=== PATIENT | female | born 2005 | race African-American/Black ===

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

== ENCOUNTER 2025-01-12 13:30 | Emergency (ER) | payer OTHER ==
[2025-01-12 14:28] LABS: Absolute Lymphocytes (CBC) 2.3 K/uL (0.7-4.9); Hematocrit 37.9 % (36.0-45.0); Hemoglobin 12.3 g/dL (12.0-15.0); MCH 27.9 pg (27.0-35.0); MCHC 32.5 g/dL (32.0-36.0); MCV 85.9 fL (80-100); MPV 7.3 fL (7.6-11.3); Nucleated RBC Absolute Count 0.0 (0-0); Nucleated Red Blood Cells % 0.0 % (0-0); RBC Red Blood Cell Count 4.42 M/uL (3.86-4.86); White Blood Count 12.00 thou/uL (4.3-10.9)
--- NOTE | 2025-01-12 14:59 | RAD REPORT ---
EXAMINATION: US FIRST TRIMESTER TRANSVAGINAL WITH DOPPLER CLINICAL INDICATION: with vaginal bleeding TECHNIQUE: Real-time obstetrical ultrasonography of the maternal pelvis and first trimester was performed transvaginally. Color and spectral Doppler evaluation of the ovaries was performed. COMPARISON: No prior exam. FINDINGS: The uterus measures 9 x 5 x 6 cm. A gestational sac is present within the endometrium. Within this is a pole crown-rump length 1. 4 cm. Cardiac activity 167 bpm. 1.4 x 0.6 cm subchorionic bleed. Right ovary normal in size and echotexture. Blood flow to the right ovary. 1.9 cm cyst Left ovary normal in size and echotexture. Blood flow to the left ovary Right and left adnexa unremarkable No significant free fluid IMPRESSION: Single live intrauterine with an estimated gestational age 7 weeks 4 days ALBERTINA 08/27/2025 Small subchorionic bleed
[2025-01-12 15:16] LABS: Anion Gap 8.7 mEq/L (5.0-15.0); BUN Blood Urea Nitrogen 8.0 mg/dL (7-18); Glucose Level 81.0 mg/dL (74-106); HCG, Quantitative 43230.0 mIU/mL (1-3); Potassium 3.7 mEq/L (3.5-5.1)
[2025-01-12 16:00] LABS: Sqamous Epithelial <5 /HPF (None Seen); Urine Culture Reflex Order NOT NEEDED; Urine Microscopic Reflex YN ORDER UMIC
--- NOTE | 2025-01-12 17:36 | ER ---
Nurse's Notes [facility] Name: Juan Reyez Age: 19 yrs Sex: Female : 2005 Arrival Date: 01/12/2025 Time: 13:30 Bed 16 Private MD: Diagnosis: Other hemorrhage in early ;UTI/ Urinary tract infection, site not specified Presentation: 01/12 13:51 Chief complaint: Patient states: 8 weeks and had some vaginal bleeding 2 days me1 ago that has resolved yesterday afternoon. Slight abdominal cramps today. Coronavirus screen: Vaccine status: Patient reports being unvaccinated. Ebola Screen: No symptoms or risks identified at this time. Initial Sepsis Screen: Does the patient meet any 2 criteria? HR > 90 bpm. Does the patient have a suspected source of infection? No. Patient's initial sepsis screen is negative. Risk Assessment: Do you want to hurt yourself or someone else? Patient reports no desire to harm self or others. Onset of symptoms was January 10, 2025. 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 - Infectious Disease History:: Denies. - Social history:: Smoking status: Patient denies any tobacco usage or history of. Screenin:49 [facility] ED Fall Risk Assessment (Adult) History of falling in the last 3 months, jb4 including since admission No falls in past 3 months (0 pts) Confusion or Disorientation No (0 pts) Intoxicated or Sedated No (0 pts) Impaired Gait No (0 pts) Mobility Assist Device Used No (0 pt) Altered Elimination No (0 pt) Score/Fall Risk Level 0 - 2 = Low Risk Oriented to surroundings, Maintained a safe environment. Abuse screen: Denies threats or abuse. Nutritional screening: No deficits noted. Tuberculosis screening: No symptoms or risk factors identified. Assessment: 14:30 General: Appears in no apparent distress. comfortable, Behavior is calm, cooperative, jb4 appropriate for age. Pain: Complains of pain in pelvis Pain does not radiate. Pain currently is 1 out of 10 on a pain scale. Neuro: Level of Consciousness is awake, alert, obeys commands, Oriented to person, place, time, situation. Cardiovascular: Patient's skin is warm and dry. Respiratory: Airway is patent Respiratory effort is even, unlabored, Respiratory pattern is regular, symmetrical. : Reports vaginal bleeding that is bright red, with clots, moderate flow. Derm: Skin is intact, Skin is dry, Skin is normal, Skin temperature is warm. Musculoskeletal: Circulation, motion, and sensation intact. Range of motion: intact in all extremities. 15:49 Reassessment: Patient appears in no apparent distress at this time. Patient and/or jb4 family updated on plan of care and expected duration. Pain level reassessed. Patient is alert, oriented x 3, equal unlabored respirations, skin warm/dry/pink. 17:17 Reassessment: Patient appears in no apparent distress at this time. Patient and/or jb4 family updated on plan of care and expected duration. Pain level reassessed. Patient is alert, oriented x 3, equal unlabored respirations, skin warm/dry/pink. Vital Signs: 13:51 BP 131 / 86; Pulse 110; Resp 18; Temp 98.2; Pulse Ox 100% ; Weight 104.33 kg; Height 5 me1 ft. 7 in. ; Pain 1/10; 16:29 BP 111 / 69; Pulse 94; Resp 16; Pulse Ox 100% on R/A; jb4 13:51 Body Mass Index 36.02 (104.33 kg, 170.18 cm) me1 13:51 Pain Scale: Adult ak1 ED Course: 13:33 Patient arrived in ED. im 13:36 Miles [facility] 13:36 Vincent Hinton MD is Attending Physician. dr5 13:53 Triage completed. me1 13:53 Arm band placed on Patient placed in waiting room. me1 14:15 No provider procedures requiring assistance completed. Inserted saline lock: 20 gauge rg5 in left antecubital area, using aseptic technique. Blood collected. Flushed with 10 mL NS. 14:53 US Transvaginal Ob In Process Unspecified. EDMS 14:53 Abdomen Pelvis Scan\E\US In Process Unspecified. EDMS 15:36 Sav Evans, RN is Primary Nurse. jb4 15:49 Patient has correct armband on for positive identification. Bed in low position. Call jb4 light in reach. Side rails up X 1. Provided Education on: plan of care. 17:48 IV discontinued, intact, bleeding controlled, No redness/swelling at site. Pressure jb4 dressing applied. Administered Medications: No medications were administered Medication: 15:49 VIS not applicable for this client. jb4 Outcome: 17:36 Discharge ordered by . dr5 17:48 Discharged to home ambulatory, with family, jb4 17:48 Condition: stable 17:48 Discharge instructions given to patient, Instructed on discharge instructions, follow up and referral plans. no drinking with medication, medication usage, Demonstrated understanding of instructions, follow-up care, medications, Prescriptions given X 1, 17:49 Patient left the ED. jb4 Signatures: Dispatcher [employer] EDSav Coles, RN RN jb4 Susan Steel Michelle RN RN me1 Les Eller RN RN rg5 Miles Frank, POULTRY RAISER-C POULTRY RAISER-Cdr5 Corrections: (The following items were deleted from the chart) 13:54 13:53 Arm band placed on Patient placed in an exam room, me1 me1
--- NOTE | 2025-01-12 17:36 | EDPHYS ---
Physician Documentation [facility] Name: Juan Reyez Age: 19 yrs Sex: Female : 2005 Arrival Date: 01/12/2025 Time: 13:30 Bed 16 Private MD: ED Physician Vincent Hinton HPI: 01/12 19:59 This 19 yrs old Black Female presents to ER via Ambulatory with complaints of Vaginal dr5 Bleeding, + Preg <12wks. 19:59 The patient presents to the emergency department with vaginal bleeding, that is light. dr5 The estimated gestational age is 7 weeks. Patient is a 19-year-old female no Chaparro history coming in with vaginal pain that happened yesterday with a blood clot and mild abdominal cramps that resolved today. Patient has not had any vaginal pain today and no abdominal cramps today. Patient is concerned that something may have happened to her baby.. 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 - Infectious Disease History:: Denies. - Social history:: Smoking status: Patient denies any tobacco usage or history of. ROS: 19:59 Constitutional: as per hpi dr5 Exam: 19:59 Constitutional: This is a well developed, well nourished patient who is awake, alert, dr5 and in no acute distress. Head/Face: Normocephalic, atraumatic. Eyes: Pupils equal round and reactive to light, extra-ocular motions intact. Lids and lashes normal. Conjunctiva and sclera are non-icteric and not injected. Cornea within normal limits. Periorbital areas with no swelling, redness, or edema. ENT: Nares patent. No nasal discharge, no septal abnormalities noted. Tympanic membranes are normal and external auditory canals are clear. Oropharynx with no redness, swelling, or masses, exudates, or evidence of obstruction, uvula midline. Mucous membranes moist. Chest/axilla: Normal chest wall appearance and motion. Nontender with no deformity. No lesions are appreciated. Cardiovascular: Regular rate and rhythm with a normal S1 and S2. Normal PMI, no JVD. No pulse deficits. Respiratory: Lungs have equal breath sounds bilaterally, clear to auscultation. No rales, rhonchi or wheezes noted. No increased work of breathing, no retractions or nasal flaring. Abdomen/GI: Soft, non-tender, non-distended Skin: Warm, dry with normal turgor. Normal color with no rashes, no lesions, and no evidence of cellulitis. MS/ Extremity: Pulses equal, no cyanosis. Neurovascular intact. Full, normal range of motion. Neuro: Awake and alert, GCS 15, oriented to person, place, time, and situation. Cranial nerves II-XII grossly intact. Motor strength 5/5 in all extremities. Sensory grossly intact. Cerebellar exam normal. Normal gait. Vital Signs: 13:51 BP 131 / 86; Pulse 110; Resp 18; Temp 98.2; Pulse Ox 100% ; Weight 104.33 kg; Height 5 me1 ft. 7 in. ; Pain 1/10; 16:29 BP 111 / 69; Pulse 94; Resp 16; Pulse Ox 100% on R/A; jb4 13:51 Body Mass Index 36.02 (104.33 kg, 170.18 cm) me1 13:51 Pain Scale: Adult me1 MDM: 13:36 Medical Screening Exam initiated dr5 19:59 Differential diagnosis: [place], threatened Ab, inevitable Ab, ectopic , dr5 Subchorionic hemorrhage. Data reviewed: vital signs, nurses notes, lab test result(s), Beta HCG: CBC, white blood cell count, hemoglobin, hematocrit, platelets, electrolytes, sodium, potassium, chloride, serum bicarbonate, BUN, creatinine, serum glucose, Type and screen, radiologic studies, ultrasound. Consideration of Admission/Observation Escalation of care including admission/observation considered. Escalation considered patient found to have ectopic . Historians other than the Patient: Parent: Mother. Care significantly affected by the following Social Determinants of Health: Poor access to healthcare and/or lack of insurance, Poor access to transportation, Problems related to employment. Counseling: I had a detailed discussion with the patient and/or guardian regarding the historical points, exam findings, and any diagnostic results supporting the discharge/admit diagnosis, the presence of at least one elevated blood pressure reading (>120/80) during this emergency department visit, lab results, radiology results, the need for outpatient follow up, for definitive care, a family practitioner, an OB/Gyne specialist, to return to the emergency department if symptoms worsen or persist or if there are any questions or concerns that arise at home. Special discussion: I discussed with the patient/guardian in detail that at this point there is no indication for admission to the hospital. It is understood, however, that if the symptoms persist or worsen the patient needs to return immediately for re-evaluation. Based on the history and exam findings, there is no indication for further emergent testing or inpatient evaluation. I discussed with the patient/guardian the need to see the OB Gyne specialist for further evaluation of the symptoms. ED course: Subchorionic hemorrhage noted on ultrasound. Patient is O+ . ED course: All questions answered. Labs and ultrasound results printed and given to patient. 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 Strict ER precautions given.. 01/12 13:59 Order name: Abo/rh Typing; Complete Time: 17:30 [facility] 01/12 13:59 Order name: Basic Metabolic Panel; Complete Time: 15:22 [facility] 01/12 13:59 Order name: CBC with Diff; Complete Time: 15:04 [facility] 01/12 13:59 Order name: Test, Urine; Complete Time: 16:07 [facility] 01/12 13:59 Order name: Quantitative Hcg; Complete Time: 15:22 [facility] 01/12 13:59 Order name: UA Rfx Sathya Cult if indicated; Complete Time: 16:07 [facility] 01/12 13:59 Order name: US Transvaginal Ob; Complete Time: 15:04 [facility] 01/12 14:53 Order name: Abdomen Pelvis Scan\E\US ED[facility] 01/12 13:59 Order name: IV Saline Lock; Complete Time: 14:22 [facility] 01/12 13:59 Order name: Labs collected and sent; Complete Time: 14:22 [facility] 01/12 13:59 Order name: NPO; Complete Time: 14:22 dr5 Administered Medications: No medications were administered Disposition Summary: 01/12/25 17:36 Discharge Ordered Notes: Location: Home dr5 Condition: Stable dr5 Diagnosis - Other hemorrhage in early dr5 - UTI/ Urinary tract infection, site not specified dr5 Followup: dr5 - With: Emergency Department - When: As needed - Reason: Worsening of condition Followup: dr5 - With: Private Physician - When: 1 - 2 days - Reason: Recheck today's complaints, Continuance of care, Re-evaluation by your physician Discharge Instructions: - Discharge Summary Sheet dr5 - Urinary Tract Infection, Adult, [id number] dr5 - Subchorionic Hematoma dr5 Forms: - Medication Reconciliation Form dr5 - Antibiotic Education dr5 - Patient Portal Instructions dr5 - Leadership Thank You Letter dr5 Prescriptions: - Cephalexin 500 mg Oral Capsule - take 1 capsule ORAL route every 12 hours for 10 days; 20 capsule; Refills: 0, dr5 Product Selection Permitted Signatures: Dispatcher [employer] EDJeannie Sinha RN RN me1 Miles Frank, MASTER AUTOMOTIVE GLASS TECHNICIAN-C MASTER AUTOMOTIVE GLASS TECHNICIAN-Cdr5
[2025-01-12 22:09] VITALS: TEMP 98.2; O2SAT 100
[2025-01-12 22:10] VITALS: BP 111/69
== END 2025-01-12 17:49 | disposition home or self-care (01) ==
LOC: ER 13:30
DX: O20.8 Other hemorrhage in early pregnancy (principal); O23.41 Unspecified infection of urinary tract in pregnancy, first trimester; N39.0 Urinary tract infection, site not specified; Z3A.01 Less than 8 weeks gestation of pregnancy
CPT/HCPCS: 36415; 76817; 80048; 81001; 81025; 84702; 85025; 86900; 86901; 93975; 99284